=== PATIENT | male | born 1985 | race Caucasian/White ===

== ENCOUNTER 2023-05-09 17:50 | Emergency (ER) | payer SELFPAY ==
[2023-05-09] VITALS (16 sets, daily range): BP systolic 119–139; BP diastolic 63–88; PULSE 93–127; RESP 12–31; TEMP 36.4; O2SAT 94–99; BMI 25.7
--- NOTE | 2023-05-09 18:10 | ECG_ITS ---
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 Measurements Intervals [place] Rate: 114 P: 41 UT: 132 QRS: 65 QRSD: 76 T: 60 QT: 307 QTc: 424 Interpretive Statements SINUS TACHYCARDIA POSSIBLE LEFT ATRIAL ENLARGEMENT [-0.1mV P-WAVE IN V1/V2] ABNORMAL RHYTHM ECG No previous ECG available for comparison Electronically Signed On 05-10-2023 14:46:19 ARCHITECTURE MANAGER by Patrick Russ M.D. [id number]
--- NOTE | 2023-05-09 18:10 | ED_ITS ---
HPI - Alcohol 2 General: Chief Complaint: Alcohol Stated Complaint: blood in stool, ringing in ears, headache Time Seen by Provider: 05/09/23 18:04 Source: patient Mode of arrival: ambulatory Limitations: no limitations History of Present Illness: 38-year-old male states that he has a lo ng history of alcoholism he states he has been drinking for years he usually drinks 1/5 or 2 of vodka daily. States he is drinking last night has not had a drink since last night and states he has been having some abdominal cramping feeling nauseous feeling anxious as well he states that he had had some bright red blood in his stool he denies any weakness he has no tremors here no known history of withdrawal seizures. He states he wants to try to stop drinking. Associated symptoms: Reports nausea; Deny abdominal pain or vomiting Review of Systems 2 Const: Denies: fever(s), chills, body aches or change in appetite Eyes: Denies: eye discomfort ENMT: Denies: throat pain or dental pain Card: Denies: chest pain Resp: Denies: dyspnea GI: Reports: nausea, diarrhea and hematochezia; Denies: abdominal pain or vomiting : Denies: dysuria Musc: Denies: neck pain or back pain Skin/Breast: Denies: rash Neuro: Denies: headache(s) Physical Exam 2 Const: COMMON NORMALS: no acute distress, patient oriented x3 and healthy appearing HENMT: COMMON NORMALS: normocephalic and atraumatic HEAD & SCALP: n ormocephalic and atraumatic Eye: COMMON NORMALS: conjunctivae normal CONJUNCTIVA: Yes conjunctivae normal Neck/C-Spine: COMMON NORMALS: full ROM and supple Chest: COMMONS NORMALS: normal inspection of the chest and normal palpation of entire chest wall Resp: COMMON NORMALS: normal respiratory effort, No retractions, No use of accessory muscles and clear to auscultation bilaterally AUSCULTATION: clear to auscultation bilaterally Cardio: COMMON NORMALS: regular rhythm and No murmurs present (Cardio) R ATE: tachycardic RHYTHM: regular rhythm GI: COMMON NORMALS: Normal to inspection, nondistended, normoactive bowel sounds present, Soft to palpation, non-tender and no masses PALPATION: Yes Soft to palpation Extremity: COMMON NORMALS: normal to inspection and full ROM Neuro: COMMON NORMALS: patient oriented x3, moves all extremities and no focal motor deficits Psych: COMMON NORMALS: mental status grossly normal, Normal thought process present and cooperative THOUGHT PROCESS: Normal thought process present Skin: COMMON NORMALS: no rashes or lesions noted and no wounds GENERAL SKIN EXAM: no rashes or lesions noted Course 2 Vital Signs: Vital signs: Vital Signs Temperature 97.6 F 05/09/23 17:59 Pulse Rate 116 H 05/09/23 19:15 Respiratory Rate 21 H 05/09/23 19:15 Blood Pressure 126/76 05/09/23 19:15 Pulse Oximetry 99 05/09/23 19:15 Oxygen Delivery Me thod Room Air 05/09/23 19:15 MDM - Alcohol Medical Decision Making Patient presents here with history of alcohol abuse he is wanting to try to detox he is showing no signs of severe withdrawal he did have some tachycardia his heart rates much improved at 105 currently no tremors no vomiting he feels improved after fluids and Ativan we will send him home on Librium inform he is going to drink do not take Librium we will get him information for [facility] Medical Records I reviewed the patient's medical records. Lab Data I reviewed the patient's lab results. 05/09/23 18:42 05/09/23 18:42 Laboratory Results WBC 5.99 10^3/uL (3.29-11.43) 05/09/23 18:42 RBC 5.01 10^6/uL (3.85-5.65) 05/09/23 18:42 Hgb 15.60 g/dL (11.27-16.99) 05/09/23 18:42 Hct 44.6 % (37-53) 05/09/23 18:42 MCV 89.0 fl (82-101) 05/09/23 18:42 MCH 31.1 pg (27-33) 05/09/23 18:42 MCHC 35.0 g/dL (30-55) 05/09/23 18:42 RDW 12.3 % (12.1-15.1) 05/09/23 18:42 Plt Count 305 10^3/cmm (157-399) 05/09/23 18:42 MPV 9.3 fL (7.4-10.4) 05/09/23 18:42 Neut % (Auto) 54.6 % 05/09/23 18:42 Lymph % (Auto) 32.4 % 05/09/23 18:42 Campbell % (Auto) 8.8 % 05/09/23 18:42 Eos % (Auto) 2.3 % 05/09/23 18:42 Baso % (Auto) 1.7 % 05/09/23 18:42 Neut # (Auto) 3.27 10^3/uL (1.8-7.7) 05/09/23 18:42 Lymph # (Auto) 1.9 10^3/uL (0.8-4.8) 05/09/23 18:42 Campbell # (Auto) 0.5 10^3/uL (0.2-0.9) 05/09/23 18:42 Eos # (Auto) 0.1 10^3/uL (0.0-0.8) 05/09/23 18:42 Baso # (Auto) 0.1 10^3/uL (0.0-0.1) 05/09/23 18:42 Nucleated RBC % (auto) 0 % 05/09/23 18:42 Nucleated RBCs # 0.0 /100WBC 05/09/23 18:42 Sodium 141 mmol/L (136-145) 05/09/23 18:42 Potassium 3.9 mmol/L (3.5-5.1) 05/09/23 18:42 Chloride 99 mmol/L (98-107) 05/09/23 18:42 Carbon Dioxide 28 mmol/L (22-29) 05/09/23 18:42 Anion Gap 17.9 (5-19) 05/09/23 18:42 BUN 11 mg/dL (6-20) 05/09/23 18:42 Creatinine 1.0 mg/dL (0.7-1.2) 05/09/23 18:42 GFR Calculation 83.2 mL/min (90-130) L 05/09/23 18:42 Glucose 93 mg/dL (65-115) 05/09/23 18:42 Calculated Osmolality 291 mOsm/kg (285-295) 05/09/23 18:42 Calcium 9.0 mg/dL (8.5-10.5) 05/09/23 18:42 Total Bilirubin 0.8 mg/dL (0.15-1.2) 05/09/23 18:42 AST 58 U/L (0-40) H 05/09/23 18:42 ALT 71 U/L (0-41) H 05/09/23 18:42 Alkaline Phosphatase 92 U/L (40-130) 05/09/23 18:42 Total Protein 7.5 g/dL (6.6-8.7) 05/09/23 18:42 Albumin 4.5 g/dL (3.5-5.2) 05/09/23 18:42 Globulin 3.0 g/dL (1.3-4.6) 05/09/23 18:42 Ethyl Alcohol 16 mg/dL (0-10) H 05/09/23 18:42 No radiology studies performed this visit EKG Data EKG 1: I personally reviewed and interpreted this EKG as follows: EKG interpretation date: 05/09/23 EKG interpretation time: 18:14 Interpretation: sinus tach hr [address] or t wave abnormalities qrs 76 qtc 375 Discharge Plan Discharge Patient Disposition: Home Clinical Impression: Alcohol abuse Condition: Stable Prescriptions: New chlordiazepoxide HCl 10 mg capsule 10 mg PO Q6H PRN (Reason: withdrawal symptoms) Qty: 30 0RF Discharge Orders: Discharge ED (Routine); Ordered 05/09/23 Ordered By: Kamryn Gil Discharge Diet: Advance as tolerated Discharge Activity: Resume usual activity Patient Instructions: Abuse of Alcohol (ED) Activity Restrictions/Additional Instructions: Return if any signs of severe withdrawal including tremors vomiting or seizures Coding Level of Care Code ED [address] V[employer] for [employer]iga
[2023-05-09] MEDS: LORazepam 2 mg/mL INJ 10 mL MDV 1 MG IVP (18:57)
[2023-05-09 19:11] LABS: Basophils # 0.1 10^3/uL (0.0-0.1); Basophils % 1.7 %; Eosinophils # 0.1 10^3/uL (0.0-0.8); Eosinophils % 2.3 %; Hematocrit 44.6 % (37-53); Lymphocytes # 1.9 10^3/uL (0.8-4.8); Lymphocytes % 32.4 %; Mean Corpuscular Hemoglobin 31.1 pg (27-33); Mean Platelet Volume 9.3 fL (7.4-10.4); Monocytes # 0.5 10^3/uL (0.2-0.9); Monocytes % 8.8 %; Neutrophils # 3.27 10^3/uL (1.8-7.7); Neutrophils % 54.6 %; Nucleated Red Blood Cells % 0 %; Platelet Count 305 10^3/cmm (157-399); Red Blood Count 5.01 10^6/uL (3.85-5.65); Red Cell Distribution Width 12.3 % (12.1-15.1); White Blood Count 5.99 10^3/uL (3.29-11.43)
[2023-05-09 19:35] LABS: Alanine Aminotransferase 71 U/L (0-41); Albumin Level 4.5 g/dL (3.5-5.2); Alcohol Level 16 mg/dL (0-10); Alkaline Phosphatase 92 U/L (40-130); Blood Urea Nitrogen 11 mg/dL (6-20); Carbon Dioxide 28 mmol/L (22-29); Chloride 99 mmol/L (98-107); Creatinine Clr Calc Pharmacy 120.0879; Glomerular Filtration Rate 83.2 mL/min (90-130); Glucose 93 mg/dL (65-115); Osmolality Calculated 291 mOsm/kg (285-295); Sodium 141 mmol/L (136-145); Total Bilirubin 0.8 mg/dL (0.15-1.2); Total Protein 7.5 g/dL (6.6-8.7)
[2023-05-09] MEDS: multivitamin therapeutic Tablet 1 TAB PO (19:35)
[2023-05-09 19:47] LABS: Anion Gap 17.9 (5-19); Aspartate Amino Transferase 58 U/L (0-40); Potassium 3.9 mmol/L (3.5-5.1)
[2023-05-09] MEDS: sodium chloride 0.9% 1,000 ML 999 ML IV (20:16)
[2023-05-09] MEDS: diazePAM 5 mg Tablet PO (20:20)
[2023-05-09] MEDS: ketorolac 30 mg/mL INJ 15 MG IVP (20:20)
== END 2023-05-09 21:14 | disposition home or self-care (01) ==
PROVIDERS: Emergency Provider Emergency Medicine
DX: F10.10 Alcohol abuse, uncomplicated (principal)
CPT/HCPCS: 80053; 80307; 85025; 93005; 96361; 96374; 96375; 99284; J1885; J2060; J3411; J7030